=== PATIENT | male | born 1985 | race Hispanic/Latino ===

== ENCOUNTER 2018-07-18 21:51 | Emergency (ER) | payer SELFPAY ==
[2018-07-18] MEDS ORDERED: Ibuprofen 800 MG TAB ONE (23:04)
[2018-07-18] MEDS ORDERED: Acetaminophen 500 MG TAB ONE (23:04)
== END 2018-07-18 23:09 | disposition home or self-care (01) ==
LOC: ERS 21:51
DX: J11.1 Influenza due to unidentified influenza virus with other respiratory manifestations (principal)
CPT/HCPCS: 99282